=== PATIENT | female | born 2000 | race American Indian/Alaskan Native ===

== ENCOUNTER 2022-01-13 11:57 | Emergency (ER) | payer MEDICAID ==
[2022-01-13 12:15] VITALS: BP 118/82
[2022-01-13] MEDS ORDERED: KETOROLAC 30 MG/1 ML INJ IV ONE (13:11)
[2022-01-13] MEDS ORDERED: ONDANSETRON 4 MG/2 ML INJ IV ONE (13:11)
[2022-01-13] MEDS ORDERED: SODIUM CHLORIDE 0.9% 1000 ML 1,000 ML IV ONE (13:12)
[2022-01-13 14:18] LABS: Hematocrit 31.7 % (30.3-42.9); Hemoglobin 9.6 gm/dl (10.1-14.3); Mean Corpuscular HGB Conc 30 % (30-34); Mean Corpuscular Volume 70 fl (79-97); Platelet Count 315 K/mm3 (140-440); Red Blood Count 4.53 M/mm3 (3.65-5.03)
[2022-01-13 14:20] LABS: Red Cell Distribution Width 29.5 % (13.2-15.2)
[2022-01-13 14:37] LABS: Alanine Aminotransferase 15 units/L (7-56); Albumin 3.8 g/dL (3.9-5); Blood Urea Nitrogen 4 mg/dL (7-17); Calcium 8.9 mg/dL (8.4-10.2); Hemolysis Index 4
[2022-01-13 14:51] LABS: BUN/Creatinine Ratio 8
[2022-01-13 15:08] LABS: Basophils % (Manual) 0 % (0.0-1.8); Total Cells Counted 100
[2022-01-13 15:10] LABS: Anisocytosis 3+; Hypochromasia 2+; Large Platelets Rare; Ovalocytes Rare; Platelet Estimate Consistent w Auto
[2022-01-13 15:20] LABS: Eosinophils % (Manual) 0 % (0.0-4.3)
[2022-01-13 15:22] LABS: Poikilocytosis 1+; Target Cells Rare; Tear Drop Cells Rare
[2022-01-13 15:43] LABS: Hyaline Casts,Urine 1 /LPF; Mucus,Urine 2+ /HPF
[2022-01-13 15:56] LABS: Color,Urine Straw (Yellow)
[2022-01-13 15:57] LABS: Bilirubin,Urine Negative (Negative); Blood,Urine Small (Negative)
--- NOTE | 2022-01-13 16:12 | Emergency Department Report ---
ED Abdominal Pain HPI - General Chief Complaint: Chest Pain Stated Complaint: CHEST PAIN X 1 MONTH Source: patient, EMS Mode of arrival: Wheelchair Limitations: No Limitations - History of Present Illness Initial Comments: Patient is a A0 21-year-old -[place] female who is 1 month and who presents to the ED with complaint of acute onset persistent generalized weakness and fatigue, nausea, abdominal pain and urinary frequency and urgency for the last 1 week, worse in the last 2 days. Patient denies dizziness, syncope, chest pain, shortness of breath, fever, chills, diarrhea, dysuria, headache, sore throat, nasal and sinus congestion. MD Complaint: abdominal pain, other (Nausea and vomiting and diarrhea) -: week(s) (1) Location: diffuse Radiation: none Migration to: no migration Severity scale (0 -10): 5 Quality: aching, sharp Consistency: intermittent Improves With: nothing Worsens With: nothing Associated Symptoms: denies other symptoms, nausea, vomiting. denies: diarrhea, fever, constipation, dysuria, hematemesis, hematochezia, melena, hematuria, anorexia, syncope - Related Data Previous Rx's Medication Instructions Recorded Last Taken Type Dicyclomine [Bentyl] 20 mg PO Q6H #24 tablet 01/13/22 Unknown Rx Ondansetron [Zofran Odt] 4 mg PO Q8HR PRN #15 tab.rapdis 01/13/22 Unknown Rx cephALEXin [Keflex] 500 mg PO Q8HR #30 cap 01/13/22 Unknown Rx Allergies Allergy/AdvReac Type Severity Reaction Status Date / Time No Known Allergies Allergy Verified 01/13/22 12:15 ED Review of Systems ROS: Stated complaint: CHEST PAIN X 1 MONTH Other details as noted in HPI Constitutional: denies: chills, fever Eyes: denies: eye pain, eye discharge, vision change ENT: denies: ear pain, throat pain, dental pain, congestion Respiratory: denies: cough, shortness of breath, wheezing Cardiovascular: denies: chest pain, palpitations Endocrine: no symptoms reported Gastrointestinal: abdominal pain, nausea, vomiting. denies: diarrhea Genitourinary: urgency, frequency. denies: dysuria, discharge Musculoskeletal: myalgia. denies: back pain, joint swelling, arthralgia Skin: denies: rash, lesions Neurological: denies: headache, weakness, paresthesias Psychiatric: denies: anxiety, depression Hematological/Lymphatic: denies: easy bleeding, easy bruising ED Past Medical Hx - Medications Home Medications: Home Medications Medication Instructions Recorded Confirmed Last Taken Type Dicyclomine [Bentyl] 20 mg PO Q6H #24 tablet 01/13/22 Unknown Rx Ondansetron [Zofran Odt] 4 mg PO Q8HR PRN #15 tab.rapdis 01/13/22 Unknown Rx cephALEXin [Keflex] 500 mg PO Q8HR #30 cap 01/13/22 Unknown Rx ED Physical Exam - General Limitations: No Limitations General appearance: alert, in no apparent distress - Head Head exam: Present: atraumatic, normocephalic, normal inspection - Eye Eye exam: Present: normal appearance, PERRL, EOMI Pupils: Present: normal accommodation - ENT ENT exam: Present: normal exam, normal orophraynx, mucous membranes moist, TM's normal bilaterally, normal external ear exam - Neck Neck exam: Present: normal inspection, full ROM. Absent: tenderness - Respiratory Respiratory exam: Present: normal lung sounds bilaterally. Absent: respiratory distress, wheezes, rales, rhonchi, stridor, chest wall tenderness, accessory muscle use, prolonged expiratory - Cardiovascular Cardiovascular Exam: Present: regular rate, normal rhythm, normal heart sounds. Absent: systolic murmur, diastolic murmur, rubs, gallop - GI/Abdominal GI/Abdominal exam: Present: soft, normal bowel sounds. Absent: tenderness, guarding, rebound, rigid, hyperactive bowel sounds - Extremities Exam Extremities exam: Present: normal inspection, full ROM, normal capillary refill. Absent: tenderness - Back Exam Back exam: Present: normal inspection, full ROM. Absent: tenderness, CVA tenderness (R), CVA tenderness (L), muscle spasm, paraspinal tenderness, vertebral tenderness - Neurological Exam Neurological exam: Present: alert, oriented X3, CN II-XII intact, normal gait, reflexes normal - Psychiatric Psychiatric exam: Present: normal affect, normal mood - Skin Skin exam: Present: warm, dry, intact, normal color. Absent: rash ED Course Vital Signs 01/13/22 12:14 Temperature 98.1 F Pulse Rate 87 Respiratory 18 Rate Blood Pressure 118/82 [Left] O2 Sat by Pulse 99 Oximetry ED Medical Decision Making - Lab Data Result diagrams: 01/13/22 13:38 01/13/22 13:38 - Medical Decision Making This is a A0 21-year-old -[place] female who is 1 month and who presents to the ED with complaint of acute onset persistent generalized weakness and fatigue, nausea, abdominal pain and urinary frequency and urgency for the last 1 week, worse in the last 2 days. In the ED, patient is alert and oriented x3 and is not in any distress. Patient was treated for pain in the ED and also received antiemetics and antacids. Patient also received normal saline 1 L IV bolus x1. Lab test results were reviewed and are all nonactionable except for urinary tract infection in urinalysis. On reevaluation, patient's felt better, is hemodynamically stable. Patient will discharge home on medications and advised to follow-up with her primary care physician in 7 to 10 days for reevaluation or return to the ED immediately if symptoms get worse. - Differential Diagnosis Viral syndrome; GERD; UTI; gastroenteritis; Critical care attestation.: If time is entered above; I have spent that time in minutes in the direct care of this critically ill patient, excluding procedure time. ED Disposition Clinical Impression: Acute urinary tract infection Abdominal pain Qualifiers: Abdominal location: generalized Qualified Code(s): R10.84 - Generalized abdominal pain Disposition: 01 HOME / SELF CARE / HOMELESS Is pt being admited?: No Does the pt Need Aspirin: No Condition: Stable Instructions: Abdominal Pain, Adult, [id number], Urinary Tract Infection, Adult, [id number] Additional Instructions: All lab test results were reviewed and are all nonactionable except for urinalysis that showed mild urinary tract infection. Therefore take medications with food, drink plenty of fluids and follow-up with your primary care physician in 7 to 10 days for reevaluation. Return to the ED immediately if symptoms get worse. Prescriptions: Dicyclomine [Bentyl] 20 mg PO Q6H #24 tablet cephALEXin [Keflex] 500 mg PO Q8HR #30 cap Ondansetron [Zofran Odt] 4 mg PO Q8HR PRN #15 tab.rapdis PRN Reason: nausea Referrals: [facility] [Provider Group] - 3-5 Days Time of Disposition: 16:12 Print Language: BENINESE
[2022-01-13] MEDS ORDERED: FAMOTIDINE 20 MG TAB PO ONE (17:10)
== END 2022-01-13 17:24 | disposition home or self-care (01) ==
LOC: ED 11:57
DX: N39.0 Urinary tract infection, site not specified (principal); R07.89 Other chest pain; R10.84 Generalized abdominal pain; Z79.899 Other long term (current) drug therapy
CPT/HCPCS: 36415; 80053; 81001; 83690; 84703; 85007; 85025; 87086; 96361; 96374; 96375; 99284; J1885; J2405; J7030